=== PATIENT | female | born 1945 | race Caucasian/White ===

== ENCOUNTER 2019-02-04 11:04 | Day surgery (SDC) | payer MEDICARE, BC ==
[~2019-02-04 11:04] MED LIST: Buffered Lidocaine 1% SYRIN* 1 ML/SYRINGE INTRADERM ONE; Dexamethasone IV* 4 MG/ML 1 ML (4 MG) IV SLOW PU ONE; Famotidine IV* 10 MG/ML 2 ML (20 mg) IV ONE; Lactated Ringers 1000 ML Bag* 1,000 ML IV SCH
[2019-02-04] MEDS ORDERED: Famotidine IV* 10 MG/ML 2 ML (20 mg) ONE (11:11)
[2019-02-04] MEDS ORDERED: ceFAZolin 2 GM PREMIX in ORs 2 GM/50 ML BAG ONE (11:18)
[2019-02-04] MEDS ORDERED: Bupivacaine 0.25% SDV* 30 ML ONE (11:32)
[2019-02-04] MEDS ORDERED: Midazolam* 1 MG/ML 5 ML VIAL (5 MG) ONE (12:00)
[2019-02-04] MEDS ORDERED: fentaNYL* 50 MCG/ML 2 ML VIAL (100 MCG VIAL) ONE (12:03)
[2019-02-04] MEDS ORDERED: Ondansetron INJ* 2 MG/ML VIAL ONE (12:38)
[2019-02-04] MEDS ORDERED: Ketorolac INJ* 30 MG/ML 1 ML VIAL ONE (12:38)
[2019-02-04] MEDS ORDERED: Dexamethasone IV* 4 MG/ML 1 ML (4 MG) ONE (12:38)
[2019-02-04] MEDS ORDERED: DiMENhydriNATE IV* 50 MG/ML VIAL ONE (12:38)
[2019-02-04] MEDS ORDERED: Propofol* 10 MG/ML 20 ML BTL ONE (12:39)
[2019-02-04] MEDS ORDERED: Lidocaine 2% PF * 5 ML VIAL ONE (12:39)
[2019-02-04] MEDS ORDERED: EPHEDrine (Pressors)* 50 MG/ML VIAL ONE (13:36)
[2019-02-04] MEDS ORDERED: HYDROmorphone INJ* 0.5 MG/0.5 ML SYRINGE ONE (13:41)
[2019-02-04] MEDS ORDERED: Naloxone* 0.4 MG/ML 1 ML VIAL IV PRN (14:07)
[2019-02-04] MEDS ORDERED: DiMENhydriNATE IV* 50 MG/ML VIAL IV PUSH PRN (14:07)
[2019-02-04] MEDS ORDERED: Acetaminophen TAB* 325 MG PO PRN (14:07)
[2019-02-04] MEDS ORDERED: Acetaminophen TAB* 325 MG ONE (14:40)
[2019-02-04 15:05] VITALS: BP 128/68
--- NOTE | 2019-02-04 21:35 | OP ---
DATE OF OPERATION: 02/04/19 - [facility] DATE OF : 43 SURGEON: Malachi Gold MD [employer] SAL[employer] CONSULTANT: NIMISHA Nixon ANESTHESIOLOGIST: Dr. Chau. ANESTHESIA: General. PRE-OP DIAGNOSES: 1. 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 2. Right thumb metacarpophalangeal joint hyperextension laxity with volar plate attenuation. POST-OP DIAGNOSES: 1. Right stage 4 basal joint arthritis. 2. Right thumb metacarpophalangeal joint hyperextension laxity with volar plate attenuation. OPERATIVE PROCEDURE: 1. Right thumb carpometacarpal arthroplasty with trapeziectomy. 2. Distally based flexor carpi radialis tendon transfer for thumb suspension and tendon interposition. 3. Right thumb metacarpophalangeal joint volar capsulodesis. INDICATIONS: Silvana is 73 years old. She has very symptomatic basal joint arthritis with MCP joint hyperextension laxity. I talked to her about the proposed treatment, the risks, the benefits. She wants to proceed. ESTIMATED BLOOD LOSS: 2 mL. COMPLICATIONS: None. FINDINGS: See above and below. DESCRIPTION OF PROCEDURE: Ms. Sweet was seen in the preoperative holding area. The correct site, side and procedures were identified. We came back to the operating room. The arm was prepped and draped in the usual fashion and a time-out was performed. The arm was exsanguinated with the Esmarch and the tourniquet was inflated to 225 mmHg. I went ahead and made a 2 to 3 cm incision over the dorsoradial thumb metacarpal base and carpometacarpal joint. The dissection was carried down longitudinally to preserve any traversing sensory nerves. The radial artery was dissected free and retracted out of the way. The periosteum over the trapezium was released. The capsule was opened over the CMC joint. Full thickness periosteal and capsular flaps were raised. The soft tissue all around the trapezium was released. The trapezium was then excised in its entirety. Once I had fully excised the trapezium, I looked at the scaphotrapezoid joint. The cartilage there actually looked really good. The cartilage on the undersurface of the trapezium where it articulated with the distal pole of the scaphoid was gone. I went ahead and released the soft tissue on the dorsoradial thumb metacarpal base. I then used sequentially larger drill bits to create a bone tunnel from the dorsoradial metacarpal base exiting out the volar-ulnar articular surface. I then made a 1 cm incision just proximal to the wrist flexion crease over the distal FCR tendon. The tendon sheath was released. The tendon was brought up out of the wound. I split it longitudinally with a #15 blade and a 26-gauge wire was passed into the tendon split. I then came about 7 or 8 cm proximal to that and made a second 1 cm incision proximal to that and made a third 1 cm incision. The tendon sheath was released. I used a Blaire clamp to pull the wire from the distal wound up into the middle wound and then the proximal wound releasing half the tendon at the musculotendinous junction. The 26-gauge wires were then used to suture shuttle the tendon down into the wrist wound. This tendon split was completed all the way up to the base of the second metacarpal. The free tail of the tendon was passed through the bone tunnel back around the intact limb and then maximum tension was set as the tendon transfer secured with multiple 3-0 Ethibond [id number] sutures. The first sewing all 3 limbs of the tendon transfer together, the last sewing intact limb to intact limb. At this point, everything was looking good. The wound was irrigated out. The capsule was closed with 4-0 Vicryl suture. Skin was closed with 4-0 nylon suture. I then turned my attention to the volar aspect of the MCP joint. I made a radially based V-shape flap that was brought up and with full thickness flaps to expose the volar MCP joint. Both digital nerves were identified and preserved. The A1 stiven was released. The tendon was retracted radially. I released the volar plate as a distally based U-flap mobilizing it all the way back to the proximal phalanx attachment. I then placed 2 DePuy mini Mitek sutures in the metacarpal neck, the suture anchors in the metacarpal neck. I used the suture of that to sew down the volar plate coming just distal to the sesamoid bones and sewing that down, so that after I had performed my whipstitches and then used my post suture to tie it down tightly. The MCP joint extended to 30 degrees shy of full extension. There was a hard stop there. I was very pleased with this. At this point, we irrigated out the wound. Skin was closed with 4-0 nylon suture, 0.25% Marcaine was infiltrated all about the area. The wounds were dressed with Xeroform, 4x4, sterile Webril and then thumb spica splint with the IP joint gently free was applied. She was taken to the recovery room in stable condition. [id number] #: [id number]
== END 2019-02-04 15:22 | disposition home or self-care (01) ==
LOC: OREAST 11:04
PROVIDERS: ATTEND Orthopaedic Surgery Hand Surgery
DX: M18.11 Unilateral primary osteoarthritis of first carpometacarpal joint, right hand (principal); M25.341 Other instability, right hand; I25.10 Atherosclerotic heart disease of native coronary artery without angina pectoris; I10 Essential (primary) hypertension; E78.5 Hyperlipidemia, unspecified; E11.9 Type 2 diabetes mellitus without complications; Z87.891 Personal history of nicotine dependence; I27.20 Pulmonary hypertension, unspecified; M19.90 Unspecified osteoarthritis, unspecified site
CPT/HCPCS: 88304; 88311; A9270-GY; C1713; J0690; J1100; J1170; J1240; J1885; J2250; J2405; J2704; J3010; J3490